=== PATIENT | female | born 1995 | race Caucasian/White ===

== ENCOUNTER 2018-11-26 16:43 | Emergency (ER) | payer MEDICAID ==
[~2018-11-26] VITALS: Ht 160 cm; Wt 57.0 kg
[2018-11-26 16:45] VITALS: BP 134/61; PULSE 91; RESP 18; Ht 160 cm; Wt 57.0 kg
[2018-11-26] MEDS ORDERED: LIDO20SO19 MM (17:52)
[2018-11-26] MEDS ORDERED: DIPH12.59 PO (17:52)
[2018-11-26] MEDS ORDERED: MAG355OR14 MM (17:52)
--- NOTE | 2018-11-26 18:04 | ERD ---
ER Documentation Chief Complaint Chief Complaint sores in mouth and on gums HPI 23-year-old female complaining of subjective fever times 5 days, and sore in her mouth or gums for the last 2-3 days. Patient also reports throat pain. She is unable to eat because of the pain. Her 4-year-old daughter had cough and runny nose several days ago, but she does not have sores in the mouth. Patient has not taken any medications at home. Denies any past medical history. ROS All systems reviewed and are negative except as per history of present illness. Medications Home Meds Active Scripts Diphenhydramine Hcl* (Diphenhydramine Hcl*) 12.5 Mg/5 Ml Elixir, 1 ML PO Q6, #100 ML Mix with viscous lidocaine and Maalox. Swish and spit. Prov:JOSE ARMANDO GOLDSMITH. SILK SPOOLER 11/26/18 Mag Hydrox/Al Hydrox/Simeth (Maalox Advanced Suspension) 355 Ml Oral.susp, 1 ML MM Q4, #100 ML Prov:JOSE ARMANDO GOLDSMITH. SILK SPOOLER 11/26/18 Lidocaine (Lidocaine Viscous) 100 Ml Soln, 1 ML MM Q4, #100 ML Prov:JOSE ARMANDO GOLDSMITH. SILK SPOOLER 11/26/18 PMhx/Soc Medical and Surgical Hx: pt denies Medical Hx Hx Alcohol Use: No Hx Substance Use: No Hx Tobacco Use: No Smoking Status: Never smoker Physical Exam Vitals Vital Signs Date Temp Pulse Resp B/P (MAP) Pulse Ox O2 O2 Flow FiO2 Time Delivery Rate 11/26/18 98.1 91 18 134/61 100 16:45 (85) Physical Exam General: Well-developed, well-nourished, conscious and coherent, in no distress Skin: Warm and dry without rash, good texture and turgor. No lesions on the hands or feet. Head: Normocephalic without evidence of trauma Nose/Face: Without rhinorrhea Mouth/throat: Mucous membranes are moist. Vesicular lesions on erythematous bases noted on buccal mucosa, gums, and posterior pharynx Neck: Supple without meningismus or adenopathy. Carotids are equal. Trachea midline. No bruits or JVD Chest: Normal AP diameter. Good expansion without retractions. Nontender. Lungs are clear to auscultate bilaterally with good tidal volume Heart: Regular rate and rhythm. No murmur, rub, or gallops heard Abdomen: Soft and nontender without masses, guarding, or rebound. Bowel sounds are active. No hepatosplenomegaly Extremities: Full range of motion. Good strength bilaterally. No erythema, ecchymosis, or edema. Peripheral pulses are intact. Sensation intact Neuro: Alert and oriented 4, GCS 15. Procedures/MDM Well-appearing 23-year-old female present ED was painful sores in her mouth. History exam findings are consistent with herpangina. I doubt herpes simplex. Patient is given prescription of viscous lidocaine, Maalox, and Benadryl liquid to mix up as Magic mouthwash. She is advised to swish and spit the solution to help ease her pain. Patient is afebrile, in no respiratory distress. Lungs are clear to auscultate. I doubt that patient has pneumonia or bronchitis. Patient appears well, stable for discharge and outpatient management. Medical decision making shared with patient and family. Education provided to patient and family. Patient and family expressed understanding of the plan. Medications on discharge: Viscous Lidocaine, Benadryl, Maalox. Follow-up: Primary care provider in 2-3 days or return to ED if worse. Disclaimer: Inadvertent spelling and grammatical errors are likely due to EHR/dictation software use and do not reflect on the overall quality of patient care. Also, please note that the electronic time recorded on this note does not necessarily reflect the actual time of the patient encounter. Departure Diagnosis: Primary Impression: Herpangina Condition: Stable Patient Instructions: Hand Foot Mouth Disease (Child) [facility] Usted se cordero hecho un examen mdico de control que le indica que no est en chris condicin que requiera tratamiento urgente en el Departamento de Emergencia. Un estudio ms profundo y el tratamiento de boo condicin pueden esperar sin ningn riesgo hasta que usted sea atendida/o en el consultorio de boo mdico o chris clnica. Es responsabilidad suya arreglar chris osiel para el seguimiento del lyn. MANEJO DE CONDICIONES NO URGENTES EN EL FUTURO 1) Si usted tiene un mdico de atencin primaria: Usted debera llamar a boo mdico de atencin primaria antes de venir al departamento de emergencia. Despus de las horas de consultorio, boo doctor o boo asociado/a est disponible por telfono. El mdico o enfermero de oscar en el servicio telefnico puede asesorarle por hector medio para atender el problema, o lyn contrario se puede programar chris osiel. 2) Si usted no tiene un mdico de atencin primaria: Llame al mdico o clnica de referencia que aparece abajo óscar las horas de consultorio para hacer chris osiel para que le vean. CLINICAS: [place] [id number] [phone] [facility] [address] [facility] [phone] [facility] [phone] [place] [id number] [phone] [facility]. [place] [id number] [phone] [facility] [phone] [address] Additional Instructions: Llame al doctor MAANA y graham chris OSIEL PARA DENTRO DE 2-3 REYES.Dgale a la secretaria que nosotros le instruimos hacer esta osiel.Avise o llame si boo condicin se empeora antes de la osiel. Regresa aqui si peor o no mejor. JOSE ARMANDO GOLDSMITH NP Nov 26, 2018 18:04
== END 2018-11-26 18:03 | disposition home or self-care (01) ==
LOC: FTE 16:43
DX: B08.5 Enteroviral vesicular pharyngitis (principal); R40.2412 Glasgow coma scale score 13-15, at arrival to emergency department
CPT/HCPCS: 99282